=== PATIENT | female | born 1985 | race African-American/Black ===

== ENCOUNTER 2016-07-12 03:24 | Emergency (ER) | payer MEDICAID ==
[~2016-07-12] VITALS: Ht 172.7 cm; Wt 68.0 kg
[2016-07-12] MEDS ORDERED: SODIUM CHLORIDE 0.9% 1,000 ML IV ONE (03:45)
[2016-07-12] MEDS ORDERED: ONDANSETRON HCL 4MG/2ML VIAL IV STA (03:45)
[2016-07-12] MEDS ORDERED: FAMOTIDINE 20MG/2ML VIAL IV STA (03:45)
[2016-07-12 04:25] LABS: CHLORIDE 106 mEq/L (98-107); HEMATOCRIT. 26.8 % (36.0-48.0); HEMOGLOBIN. 8.3 g/dL (12.0-16.0); INDEX HEMOLYSI 1 (1-3); INDEX ICTERIC 1 (1-4); INDEX LIPEMIC 1 (1-3); MEAN CORPUSCULAR HEMOGLOBIN 19.8 pg (28.0-32.0); MEAN CORPUSCULAR HGB CONC 30.9 g/dL (31.0-37.0); MEAN CORPUSCULAR VOLUME 64.2 fL (81.0-99.0); MEAN PLATELET VOLUME 9.1 fl (7.4-10.4); PLATELET 205 x1000/uL (130-400); RED BLOOD CELL COUNT 4.18 mill/uL (4.2-5.4)
[2016-07-12 04:29] LABS: INR 1.1; PROTHROMBIN TIME 11.8 sec
[2016-07-12 04:31] LABS: DIFFERENTIAL COMMENT 1
[2016-07-12 04:34] LABS: ALANINE AMINOTRANSFERASE 20 IU/L (13-61); ALBUMIN 4.2 g/dL (3.4-5.0); CALCIUM 8.8 mg/dL (8.5-10.1); CARBON DIOXIDE 24 mEq/L (21-32); LIPASE 108 IU/L (73-393); UREA NITROGEN BLOOD 7 mg/dL (7-21); eGFR > 60 mL/min (>60)
[2016-07-12 04:41] LABS: HCG SCREEN INDETERMINATE
[2016-07-12 04:42] LABS: ANION GAP 16
[2016-07-12 04:45] LABS: CLARITY URINE CLEAR (CLEAR); COLOR URINE YELLOW (YELLOW); GLUCOSE URINE NEGATIVE (NEGATIVE); KETONES URINE 2+ (NEGATIVE); LEUKOCYTE ESTERASE URINE NEGATIVE (NEGATIVE); NITRITE URINE NEGATIVE (NEGATIVE); OCCULT BLOOD URINE NEGATIVE (NEGATIVE); PH URINE 8.5 (4.5-8.0); PROTEIN URINE NEGATIVE (NEGATIVE); SPECIFIC GRAVITY URINE 1.016 (1.005-1.030); UROBILINOGEN URINE 0.2 E.U./dL (0.2-1.0)
[2016-07-12 04:49] LABS: LACTIC ACID 3.9 mmol/L (0.4-2.0)
[2016-07-12] MEDS ORDERED: ONDANSETRON HCL 4MG/2ML VIAL IV ONE ×2 (05:15→08:30)
[2016-07-12] MEDS ORDERED: MORPHINE SULFATE 4 MG/ML CPJ (NOT FOR IM USE) IV ONE ×2 (05:15→08:30)
[2016-07-12 07:56] LABS: GIANT PLATELETS 1+; HYPOCHROMASIA 2+; PLATELET ESTIMATE NORMAL
[2016-07-12 11:23] VITALS: BP 122/66
== END 2016-07-12 11:24 | disposition home or self-care (01) ==
LOC: ER 03:25
DX: K29.70 Gastritis, unspecified, without bleeding (principal); D64.9 Anemia, unspecified
CPT/HCPCS: 36415; 76705; 80053; 81003; 83605; 83690; 84702; 84703; 85025; 85610; 96361; 96374; 96375; 96376; 99285; J2270; J2405; J3490; J7030; Z7610

== ENCOUNTER 2016-07-24 08:31 | Emergency (ER) | payer MEDICAID ==
[~2016-07-24] VITALS: Ht 167.6 cm; Wt 63.0 kg
[2016-07-24] MEDS ORDERED: MORPHINE SULFATE 4 MG/ML CPJ (NOT FOR IM USE) IV STA ×2 (09:02→11:24)
[2016-07-24] MEDS ORDERED: SODIUM CHLORIDE 0.9% 1,000 ML IV ONE (09:02)
[2016-07-24] MEDS ORDERED: ONDANSETRON HCL 4MG/2ML VIAL IV STA ×2 (09:02→11:24)
[2016-07-24 09:43] LABS: CLARITY URINE CLEAR (CLEAR); COLOR URINE YELLOW (YELLOW); GLUCOSE URINE NEGATIVE (NEGATIVE); KETONES URINE NEGATIVE (NEGATIVE); LEUKOCYTE ESTERASE URINE NEGATIVE (NEGATIVE); NITRITE URINE NEGATIVE (NEGATIVE); OCCULT BLOOD URINE NEGATIVE (NEGATIVE); PH URINE >=9.0 (4.5-8.0); PROTEIN URINE NEGATIVE (NEGATIVE); SPECIFIC GRAVITY URINE 1.015 (1.005-1.030); UROBILINOGEN URINE 0.2 E.U./dL (0.2-1.0)
[2016-07-24 10:27] LABS: BASOPHILS % 0.7 % (0.0-2.0); EOSINOPHILS % 1.5 % (0.0-5.0); HEMATOCRIT. 24.9 % (36.0-48.0); HEMOGLOBIN. 7.7 g/dL (12.0-16.0); LYMPHOCYTES % 7.3 % (20.0-50.0); MEAN CORPUSCULAR HEMOGLOBIN 20.1 pg (28.0-32.0); MEAN CORPUSCULAR HGB CONC 31.1 g/dL (31.0-37.0); MEAN CORPUSCULAR VOLUME 64.6 fL (81.0-99.0); MEAN PLATELET VOLUME 8.2 fl (7.4-10.4); MONOCYTES % 3.5 % (2.0-8.0); PLATELET 341 x1000/uL (130-400); RED BLOOD CELL COUNT 3.85 mill/uL (4.2-5.4); WHITE BLOOD COUNT 8.3 x1000/uL (4.5-11.0)
[2016-07-24 10:31] LABS: ADD RBC MORPHOLOGY YES; DIFFERENTIAL COMMENT 1
[2016-07-24 10:35] LABS: INR 1.1; PROTHROMBIN TIME 11.2 sec
[2016-07-24 10:42] LABS: ALANINE AMINOTRANSFERASE 30 IU/L (13-61); ALBUMIN 3.8 g/dL (3.4-5.0); ANION GAP 11; CALCIUM 8.3 mg/dL (8.5-10.1); CARBON DIOXIDE 24 mEq/L (21-32); CHLORIDE 109 mEq/L (98-107); INDEX HEMOLYSI 1 (1-3); INDEX ICTERIC 1 (1-4); INDEX LIPEMIC 1 (1-3); LIPASE 112 IU/L (73-393); UREA NITROGEN BLOOD 7 mg/dL (7-21); eGFR > 60 mL/min (>60)
[2016-07-24 10:48] LABS: HYPOCHROMASIA 2+; PLATELET ESTIMATE NORMAL; TARGET CELLS 1+
[2016-07-24 10:49] LABS: ANISOCYTOSIS 2+
[2016-07-24] MEDS ORDERED: POTASSIUM CHLORIDE 20MEQ TABLET SR PO SCH (12:45)
[2016-07-24 13:02] VITALS: BP 108/64
== END 2016-07-24 13:19 | disposition home or self-care (01) ==
LOC: ER 09:06
DX: A08.4 Viral intestinal infection, unspecified (principal); R10.13 Epigastric pain; D64.9 Anemia, unspecified
CPT/HCPCS: 36415; 76705; 80053; 81003; 81025; 83690; 85025; 85610; 96361; 96374; 96375; 96376; 99285; J2270; J2405; J7030; Z7610